=== PATIENT | male | born 1990 | race Caucasian/White ===

== ENCOUNTER 2019-09-11 04:57 | Day surgery (SDC) | payer BC, OTHER ==
[2019-09-10 08:57] VITALS: BMI 32.5
--- NOTE | 2019-09-10 14:38 | HP ---
[facility] - Chief Complaint Chief Complaint: left knee pain - Past Medical History Allergies/Adverse Reactions: Allergies Allergy/AdvReac Type Severity Reaction Status Date / Time shellfish derived Allergy Intermediate Nausea Verified 09/10/19 08:50 No Known Drug Allergies Allergy Verified 09/10/19 08:50 - Current Medications Current Medications: Home Medications Medication Instructions Recorded NK [No Known Home Medication] 09/10/19 Satellite Physical Exam - Physical Examination General Appearance: Well Nourished, Well Developed, Alert & Oriented x3 ENT: Clear Lung: Normal air movement Extremities: Other (left knee- + swelling, + ttp, decr rom, + mcmurrays ,nvi) Neurological: Intact, Alert, Oriented Satellite Impression/Plan - Impression/Plan Impression: left knee internal derangement Operative Procedure: left knee arthroscopy Date to be Performed: 09/11/19
[2019-09-11] MEDS ORDERED: PROPOFOL 20 ML ONE ×2 (08:48→09:35)
[2019-09-11] MEDS ORDERED: LIDOCAINE HCL/PF 2% SDV 5ML VIAL ONE (08:48)
[2019-09-11] MEDS ORDERED: MIDAZOLAM HCL 2 MG/2 ML SINGLE DOSE VIAL ONE (08:48)
[2019-09-11] MEDS ORDERED: oxyCODONE HCL 5 MG TABLET PO PRN (09:12)
[2019-09-11] MEDS ORDERED: ONDANSETRON 4 MG/2 ML VIAL IVPUSH PRN (09:12)
[2019-09-11] MEDS ORDERED: ceFAZolin SODIUM 1 GM VIAL IVPB ONE (09:46)
[2019-09-11] MEDS ORDERED: BUPIVACAINE HCL 0.5% 250 MG/50 ML VIAL IJ ONE (09:50)
[2019-09-11] MEDS ORDERED: DEXAMETHASONE SOD PHOSPHATE 4 MG/1 ML VIAL ONE (09:59)
[2019-09-11] MEDS ORDERED: KETOROLAC TROMETHAMINE 30 MG/1 ML VIAL ONE (09:59)
--- NOTE | 2019-09-11 10:21 | OP ---
Operative Note - Note: Operative Date: 09/11/19 Pre-Operative Diagnosis: left knee pain, lateral meniscus tear Operation: left knee arthroscopy, partial lateral meniscectomy, debridement chondroplasty Post-Operative Diagnosis: Same as Pre-op Surgeon: Madi Pina Aligner Typewriter: Osvaldo Shin Anesthesiologist/ACCOUNT EXECUTIVE [employer] SALES: Brent Hendricks Anesthesia: General, Local Specimens Removed: shavings Estimated Blood Loss (mls): 0 Drains, Volume Out (mls): 0 Blood Volume Replaced (mls): 0 Fluid Volume Replaced (mls): 700 Operative Report Dictated: Yes
[2019-09-11 11:33] VITALS: TEMP 97.7
[2019-09-11] MEDS ORDERED: oxyCODONE HCL 5 MG TABLET ONE (11:45)
[2019-09-11 13:36] VITALS: BP 138/76; PULSE 94
--- NOTE | 2019-09-11 13:53 | OP ---
DATE OF OPERATION: 09/11/2019 PREOPERATIVE DIAGNOSIS: Left knee pain, lateral meniscus tear, osteoarthritis. POSTOPERATIVE DIAGNOSIS: Left knee pain, lateral meniscus tear, osteoarthritis. PROCEDURE: Left knee arthroscopy, partial lateral meniscectomy, and debridement chondroplasty. SURGEON: Madi Pina MD ANGIOGRAPHY NURSE: Osvaldo Shin MD MILK VENDOR: Brent Hendricks, REF-LOZENGE DOUGH MIXER ANESTHESIA: LMA anesthesia, left intraarticular injection of 20 mL 0.5% Marcaine. DRAINS: None. COMPLICATIONS: None. SPECIMEN: Arthroscopic shavings. BLOOD LOSS: None. BLOOD GIVEN: None. FLUID REPLACEMENT: 700 mL Plasmalyte. INDICATION FOR PROCEDURE: This patient is a 29-year-old male with a preoperative diagnosis of acute on chronic left knee pain, possible medial and lateral meniscus tears, and possible osteoarthritis and possible loose body. After understanding the potential risks, complications, alternatives, and benefits of surgical versus nonsurgical treatment, the patient elected to undergo this procedure. DESCRIPTION OF PROCEDURE: The patient was brought to the operating room, peripheral IV placed, IV sedation given. Ancef 2 g IV was given. LMA anesthesia was induced. Tourniquet was applied to the left upper thigh. The left lower extremity was placed in C-clamp leg foy with ample padding throughout including the Styrofoam ring. The left lower extremity was then prepped and draped in sterile fashion, elevated, exsanguinated with an Esmarch bandage, tourniquet inflated to 275 mmHg. Superomedial outflow portal was established. A lateral portal was established. A diagnostic arthroscopy was performed. A medial portal was established under direct visualization. The patient's knee overall actually looked quite good. The patient had no arthritis in the medial compartment. Medial meniscus looked pristine. A probe was introduced and the medial meniscus probed significantly, and no tear was found on the top surface. The undersurface and inter-substance aspect looked good. Photographs were taken. The intercondylar notch was then explored and looked good. Patient had some ligamentum mucosum which was removed. The ACL was probed and was seen to look good with the appropriate tension. Next, the lateral compartment was directly visualized. He was seen to have little fraying of the lateral meniscus. This was debrided. It was not much of the lateral meniscus. The rest was probed and was seen to be intact and looked good. The lateral compartment looked good. Next, the patellofemoral joint was explored. There was some chondromalacia/wearing away of cartilage on the undersurface of the patella and the patella in the femoral trochlea, grade 2, with small areas of grade 3. There was no exposed bone. Gentle debridement chondroplasty was performed. The patient did have an excessive Hoffa's fat pad, and this was debrided. It is possible he was having impingement syndrome. The knee was put through a range of motion. There was no more impingement of the fat pad through full flexion and extension under direct visualization. There were some small pieces of cartilage which were removed. It is possible these were the loose bodies identified on the MRI. The area was copiously irrigated and washed out. The medial and lateral gutter explored, the suprapatellar pouch explored. The entire knee explored again. No other abnormalities were found. Overall, the knee looked quite good, with the exception of some patellofemoral chondromalacia and excessive Hoffa's fat pad and a very small lateral meniscus tear. All excess saline was removed. Arthroscopy equipment removed. Portals closed with 3-0 nylon sutures. The area was washed and dried, covered with Xeroform, gauze, 4 x 4 gauze, Webril, and an John bandage. Tourniquet taken down after a total tourniquet time of 15 minutes. There were no complications during the case. The patient tolerated the procedure quite well, was brought to the ambulatory recovery room in stable condition. Lucila [id number]
--- NOTE | 2019-09-12 12:21 | PATH ---
Surgical Pathology Report Patient Name: CARLOS JOSEPH Med. Rec. #: [id number] /Age/Gender: 1990 (Age: 29) / M Account: [id number] Location: [facility] SUR[facility]ICAL Taken: 09/11/2019 Received: 09/11/2019 Reported: 09/12/2019 Physicians: Lucila Michael M.D. Specimen(s) Received LEFT KNEE SHAVINGS Clinical History Left knee arthroplasty, partial lateral meniscectomy, debridement chondroplasty Final Diagnosis LEFT KNEE SHAVINGS: PORTIONS OF FIBROADIPOSE AND SYNOVIAL TISSUE WITH FOCAL FIBROSIS AND REACTIVE CHANGE. Electronically Signed Ty Mcpherson M.D. Gross Description Received in formalin, labeled "left knee shavings," is a 2.8 x 2.5 x 0.3 cm. aggregate of andrew-yellow soft tissue fragments. A medical detail representative portion is submitted in one cassette. /09/11/2019 [facility]09/11/2019
== END 2019-09-11 12:40 | disposition home or self-care (01) ==
LOC: JASU-SURG 04:57
PROVIDERS: ATTEND Orthopaedic Surgery
PROC: 0SBD4ZZ Excision of Left Knee Joint, Percutaneous Endoscopic Approach (ICD-10-PCS; principal; 2019-09-11 09:00)
DX: S83.282A Other tear of lateral meniscus, current injury, left knee, initial encounter (principal); X58.XXXA Exposure to other specified factors, initial encounter; Y93.9 Activity, unspecified; Y92.9 Unspecified place or not applicable; Y99.9 Unspecified external cause status
CPT/HCPCS: 88304-TC; 94760